=== PATIENT | female | born 1950 | race Caucasian/White ===

== ENCOUNTER → 2016-10-09 | Outpatient (CLI) | payer MEDICARE, OTHER ==
--- NOTE | 2016-10-09 14:43 | MM ---
Reason for exam: history of breast cancer, conservation therapy. Last mammogram was performed 1 year ago. History: Patient is postmenopausal, has history of breast cancer at age 49, and history of other cancer. Silicone gel implants in both breasts, 2007. Lumpectomy of the left breast, 1999. Excisional biopsy of the right breast, 1987. Excisional biopsy of the left breast. Radiation therapy of the left breast. Took estrogen for 5 years beginning at age 45. Physical Findings: Nurse did not find any significant physical abnormalities on exam. MG 3D Diag Mammo Imp W/Cad YANI Bilateral CC, MLO, and ID view(s) were taken. Prior study comparison: October 07, 2015, bilateral MG 3d diag mammo imp w/cad YANI. October 03, 2014, bilateral MG diagnostic mammo w CAD YANI. There are scattered fibroglandular densities. There is chronic nodularity in the right breast. No significant new findings when compared with previous films. These results were verbally communicated with the patient and result sheet given to the patient on 10/09/16. ASSESSMENT: Benign, BI-RAD 2 RECOMMENDATION: Routine screening mammogram of both breasts in 1 year.
== END | disposition home or self-care (01) ==
LOC: RADMAMWWP 13:48
PROVIDERS: ATTEND Internal Medicine Medical Oncology
DX: C50.212 Malignant neoplasm of upper-inner quadrant of left female breast (principal)
CPT/HCPCS: G0204; G0279

== ENCOUNTER → 2017-11-05 | Outpatient (CLI) | payer MEDICARE, OTHER ==
--- NOTE | 2017-11-09 10:22 | MM ---
Reason for exam: screening (asymptomatic). Last mammogram was performed 1 year and 1 month ago. History: Patient is postmenopausal, has history of breast cancer at age 49, and history of other cancer. Silicone gel implants in both breasts, 2007. Lumpectomy of the left breast, 1999. Excisional biopsy of the right breast, 1987. Excisional biopsy of the left breast. Radiation therapy of the left breast. Took estrogen for 5 years beginning at age 45. Physical Findings: A clinical breast exam by your physician is recommended on an annual basis and results should be correlated with mammographic findings. MG 3D Screen Mammo Imp/Cad Bilateral CC, MLO, and ID view(s) were taken. Prior study comparison: October 09, 2016, bilateral MG 3d diag mammo imp w/cad YANI. October 07, 2015, bilateral MG 3d diag mammo imp w/cad YANI. The breast tissue is heterogeneously dense. This may lower the sensitivity of mammography. There are stable right breast masses in the lower inner quadrant and lower outer quadrant back to 2016. No suspicious abnormality. No significant changes when compared with prior studies. ASSESSMENT: Benign, BI-RAD 2 RECOMMENDATION: Routine screening mammogram of both breasts in 1 year.
== END | disposition home or self-care (01) ==
LOC: RADMAMWWP 12:59
PROVIDERS: ATTEND Internal Medicine Medical Oncology
DX: Z12.31 Encounter for screening mammogram for malignant neoplasm of breast (principal); Z85.3 Personal history of malignant neoplasm of breast
CPT/HCPCS: 77063; 77067

== ENCOUNTER → 2018-12-27 | Outpatient (CLI) | payer MEDICARE, OTHER ==
--- NOTE | 2018-12-28 10:39 | MM ---
Reason for exam: screening (asymptomatic). Last mammogram was performed 1 year and 2 months ago. History: Patient is postmenopausal, has history of breast cancer at age 49, and history of other cancer. Silicone gel implants in both breasts, 2007. Lumpectomy of the left breast, 1999. Excisional biopsy of the right breast, 1987. Excisional biopsy of the left breast. Radiation therapy of the left breast. Took estrogen for 5 years beginning at age 45. Physical Findings: A clinical breast exam by your physician is recommended on an annual basis and results should be correlated with mammographic findings. MG 3D Screen Mammo Imp/Cad Bilateral CC, MLO, and ID view(s) were taken. Prior study comparison: November 05, 2017, bilateral MG 3d screen mammo imp/cad. October 09, 2016, bilateral MG 3d diag mammo imp w/cad YANI. No significant new finding when compared with prior studies. ASSESSMENT: Negative, BI-RAD 1 RECOMMENDATION: Routine screening mammogram of both breasts in 1 year.
== END | disposition home or self-care (01) ==
LOC: RADMAMWWP 13:03
PROVIDERS: ATTEND Internal Medicine Medical Oncology
DX: Z12.31 Encounter for screening mammogram for malignant neoplasm of breast (principal); Z85.3 Personal history of malignant neoplasm of breast
CPT/HCPCS: 77063; 77067

== ENCOUNTER → 2021-04-28 | Outpatient (CLI) | payer MEDICARE, OTHER ==
--- NOTE | 2021-04-29 11:55 | MM ---
Reason for exam: screening (asymptomatic). Last mammogram was performed 1 year and 1 month ago. History: Patient is postmenopausal, has history of breast cancer at age 49, and history of other cancer. Silicone gel implants in both breasts, 2007. Lumpectomy of the left breast, 1999. Excisional biopsy of the right breast, 1987. Excisional biopsy of the left breast. Radiation therapy of the left breast. Took estrogen for 5 years beginning at age 45. Physical Findings: A clinical breast exam by your physician is recommended on an annual basis and results should be correlated with mammographic findings. MG 3D Screen Mammo Imp/Cad Bilateral CC and MLO view(s) were taken. Prior study comparison: April 10, 2020, bilateral MG 3d screen mammo imp/cad. December 27, 2018, bilateral MG 3d screen mammo imp/cad. November 05, 2017, bilateral MG 3d screen mammo imp/cad. There are scattered fibroglandular densities. Asymmetric breast tissue right medially, stable. There is no discrete abnormality. Bilateral subpectoral implants. ASSESSMENT: Benign, BI-RAD 2 RECOMMENDATION: Routine screening mammogram of both breasts in 1 year.
== END | disposition home or self-care (01) ==
LOC: RADMAMWWP 14:49
PROVIDERS: ATTEND Internal Medicine Medical Oncology
DX: Z12.31 Encounter for screening mammogram for malignant neoplasm of breast (principal); Z78.0 Asymptomatic menopausal state; Z85.3 Personal history of malignant neoplasm of breast
CPT/HCPCS: 77063; 77067

== ENCOUNTER → 2022-01-24 | Outpatient (CLI) | payer MEDICARE, OTHER ==
--- NOTE | 2022-01-24 08:37 | MR ---
EXAMINATION TYPE: MR knee LT wo con DATE OF EXAM: 01/24/2022 COMPARISON: Outside left knee x-ray December 03, 2021 HISTORY: Left knee inner pain and locking for 4 months.. TECHNIQUE: Multiplanar, multisequence imaging of the left knee is performed without IV contrast. FINDINGS: MEDIAL MENISCUS: Slight increased signal posterior horn does not extend to articular surface. LATERAL MENISCUS: Anterior and posterior horns are intact. There is adjacent thin-walled cyst posteri or to the posterior horn however identified. CRUCIATE LIGAMENTS: The anterior and posterior cruciate ligaments are intact and unremarkable. COLLATERAL LIGAMENTS: The medial collateral ligament and lateral collateral ligament complex are inta ct and unremarkable. EXTENSOR MECHANISM: Visualized quadriceps and patellar tendons are intact. EFFUSION: No significant suprapatellar joint effusion. POPLITEAL CYST: No popliteal/ocampo cyst. TRICOMPARTMENT SPACES: Mild to moderate narrowing and spurring patellofemoral compartment. Mild narro wing and spurring medial tibial femoral compartment CARTILAGE: Chondromalacia patella with thinning of articular cartilage along the posterior patellar p ole. Full-thickness loss is seen superiorly. BONE MARROW SIGNAL: Tiny ovoid lesion of T2 hyperintensity superior posterior patellar pole. OTHER: No additional significant abnormality is appreciated. IMPRESSION: 1. There is parameniscal cyst posterior horn lateral meniscus raising concern for nonvisualized tear. 2. Some intrasubstance tearing posterior horn medial meniscus, no full-thickness tear. 3. Mild to moderate tricompartment degenerative changes greatest patellofemoral compartment as detail ed above.
== END | disposition home or self-care (01) ==
LOC: RADMRIMAIN 07:37
PROVIDERS: ATTEND Orthopaedic Surgery
DX: M17.12 Unilateral primary osteoarthritis, left knee (principal); M23.322 Other meniscus derangements, posterior horn of medial meniscus, left knee

== ENCOUNTER → 2022-04-29 | Outpatient (CLI) | payer MEDICARE, OTHER ==
--- NOTE | 2022-04-30 11:11 | MM ---
Reason for Exam: Screening (asymptomatic). Last screening mammogram was performed 12 month(s) ago. Patient History: Menarche at age 11. First Full-Term at age 25. Right ovary removed at age 41. Hysterectomy at age 41. Postmenopausal. Breast cancer, left, age 49. Estrogen for 5 years from age 45 until age 50. 1999, Lumpectomy on the Left side. 1987, Excisional Biopsy on the Right side. Excisional Biopsy on the Left side. Radiation Therapy, left. 2007, Bilateral Implants. Prior Study Comparison: 12/27/2018 Bilateral Screening Mammogram, [facility]. 04/10/2020 Bilateral Screening Mammogram, [facility]. 04/28/2021 Bilateral Screening Mammogram, [facility]. Tissue Density: There are scattered fibroglandular densities. Findings: Analyzed By CAD. There is no suspicious group of microcalcifications or new suspicious mass in either breast. Bilateral subpectoral implants. Asymmetric breast tissue right medially, stable. No significant change from prior exams. Overall Assessment: Benign, BI-RAD 2 Management: Screening Mammogram of both breasts in 1 year. A clinical breast exam by your physician is recommended on an annual basis and results should be correlated with mammographic findings. Electronically signed and approved by: Mike Hein D.O.
== END | disposition home or self-care (01) ==
LOC: RADMAMWWP 13:45
PROVIDERS: ATTEND Internal Medicine Medical Oncology
DX: Z12.31 Encounter for screening mammogram for malignant neoplasm of breast (principal); Z85.3 Personal history of malignant neoplasm of breast; Z78.0 Asymptomatic menopausal state; Z90.721 Acquired absence of ovaries, unilateral
CPT/HCPCS: 77063; 77067

== ENCOUNTER 2023-03-26 09:09 | Day surgery (SDC) | payer MEDICARE, OTHER ==
[~2023-03-26 09:09] MED LIST: LACTATED RINGERS 1,000 ML IV SCH
[2023-03-26 09:47] VITALS: TEMP 97.6
[2023-03-26] MEDS ORDERED: LIDOCAINE 1% (10MG/ML) FOR IV START INTRADERMA ONE (09:47)
[2023-03-26] MEDS ORDERED: PROPOFOL 10 MG/ML 20 ML VIAL IV ONE (10:10)
--- NOTE | 2023-03-26 10:35 | P.PCN ---
Date of Procedure: 03/26/23 Procedure(s) Performed: BRIEF HISTORY: Patient is a 72-year-old pleasant white female scheduled for an elective colonoscopy as a part of evaluation of prior history of colon polyps. Her last colonoscopy was 3 years ago. Her last colonoscopy was 3 years ago. PROCEDURE PERFORMED: Colonoscopy with snare polypectomy PREOPERATIVE DIAGNOSIS: History of colon polyps. IV sedation per Anesthesia. PROCEDURE: After informed consent was obtained, the patient, was brought into the endoscopy unit. IV sedation was administered by Anesthesia under continuous monitoring. Digital rectal examination was normal. Initially the Olympus CF-160 flexible video pediatric colonoscope was then inserted in the rectum, gradually advanced into the cecum without any difficulty. Careful examination was performed as the scope was gradually being withdrawn. Ileocecal valve and the appendiceal orifice were visualized and appeared normal. Prep was excellent. Mucosa of the cecum, ascending colon, appeared normal. In the transverse colon there was a 5-6 mm flat transverse colon polyp removed by snare polypectomy. Rest of the transverse colon, descending colon, sigmoid colon, and rectum appeared normal. Scattered sigmoid diverticulosis. Retroflexion was performed in the rectum and no lesions were seen. The patient tolerated the procedure well. IMPRESSION: 5-6 mm flat transverse colon polyp status post cold snare polypectomy Scattered sigmoid diverticulosis RECOMMENDATIONS: Findings of this examination were discussed with the patient as well as a family. She appeared normal. The transverse colon there was a 5-6 mm flat polyp that was removed by was advised to follow with the biopsy results. If the biopsies reveal adenoma she can have a repeat colonoscopy in 5 years..
[2023-03-26 10:42] VITALS: PULSE 70; RESP 15
[2023-03-26 11:05] VITALS: BP 140/62
== END 2023-03-26 11:25 | disposition home or self-care (01) ==
LOC: ORWHC2ENDO 09:09
PROVIDERS: ATTEND Internal Medicine Gastroenterology
DX: K57.30 Diverticulosis of large intestine without perforation or abscess without bleeding (principal); Z86.010 Personal history of colon polyps; Z85.3 Personal history of malignant neoplasm of breast; Z98.890 Other specified postprocedural states
CPT/HCPCS: 88305; 45385; J2704

== ENCOUNTER → 2024-06-20 | Outpatient (CLI) | payer MEDICARE, OTHER ==
--- NOTE | 2024-06-21 10:15 | MM ---
Reason for Exam: Screening (asymptomatic). Last mammogram was performed 1 year(s) and 2 month(s) ago. Patient History: Menarche at age 11. First Full-Term at age 25. Right ovary removed at age 41. Hysterectomy at age 41. Postmenopausal. Breast cancer, left, age 49. Estrogen for 5 years from age 45 until age 50. 1999, Lumpectomy on the Left side. 1987, Excisional Biopsy on the Right side. Excisional Biopsy on the Left side. Radiation Therapy, left. 2007, Bilateral Implants. Prior Study Comparison: 04/28/2021 Bilateral Screening Mammogram, [facility]. 04/29/2022 Bilateral MG 3D screen mammo imp/cad., [facility]. 04/30/2023 Bilateral MG 3D screen mammo imp/cad., [facility]. Tissue Density: There are scattered areas of fibroglandular density. Findings: Analyzed By CAD. Bilateral breast implants appear intact. Right breast: Enlarging right breast axillary mass measuring 8 mm approximately 6.1 cm from the nipple. This is possibly medial on CC view. Left breast: There is no suspicious group of microcalcifications or new suspicious mass. Overall Assessment: Incomplete: need additional imaging evaluation, BI-RAD 0 Management: Diagnostic Breast Ultrasound of the right breast. [facility] will attempt to contact patient to return for supplemental views and ultrasound if indicated. Patient should continue monthly self-breast exams. A clinical breast exam by your physician is recommended on an annual basis. This exam should not preclude additional follow-up of suspicious palpable abnormalities. Note on Komal scores and lifetime risk: 1. A Komal score greater than 3% is considered moderate risk. If this is the case, consider specialist referral to assess eligibility for a risk reducing agent. 2. If overall lifetime risk for the development of breast cancer is 20% or higher, the patient may qualify for future screening with alternating mammogram and breast MRI. [facility], , 06/21/2024 10:12 AM. Electronically signed and approved by: Ferdinand Fernandes DO
== END | disposition home or self-care (01) ==
LOC: RADMAMWWP 13:02
PROVIDERS: ATTEND Family Medicine
DX: Z12.31 Encounter for screening mammogram for malignant neoplasm of breast (principal); R92.323 Mammographic fibroglandular density, bilateral breasts; Z78.0 Asymptomatic menopausal state; Z90.722 Acquired absence of ovaries, bilateral
CPT/HCPCS: 77063; 77067

== ENCOUNTER → 2024-06-27 | Outpatient (CLI) | payer MEDICARE, OTHER ==
--- NOTE | 2024-06-27 14:43 | USB ---
Reason for Exam: Additional evaluation requested from abnormal screening. Patient History: Menarche at age 11. First Full-Term at age 25. Right ovary removed at age 41. Hysterectomy at age 41. Postmenopausal. Breast cancer, left, age 49. Estrogen for 5 years from age 45 until age 50. 1999, Lumpectomy on the Left side. 1987, Excisional Biopsy on the Right side. Excisional Biopsy on the Left side. Radiation Therapy, left. 2007, Bilateral Implants. Prior Study Comparison: 04/28/2021 Bilateral Screening Mammogram, [facility]. 04/29/2022 Bilateral MG 3D screen mammo imp/cad., [facility]. 04/30/2023 Bilateral MG 3D screen mammo imp/cad., [facility]. 06/20/2024 Bilateral MG 3D screen mammo imp/cad., [facility]. Findings: The upper outer quadrant of the right breast, the axilla of the right breast and the retroareolar of the right breast were scanned. There is a hypoechoic area above the pectoralis muscle and prosthesis 12:00 position 8 cm from the nipple measuring 0.7 x 0.4 x 0.5 cm. This may correlate with the density on the mediolateral oblique view. Ultrasound-guided core biopsy ovary is recommended. There is a lymph node which is at the upper limits of normal for size and the right axillary tail. Overall Assessment: Suspicious, BI-RAD 4 Management: Ultrasound Core Biopsy of the right breast. A clinical breast exam by your physician is recommended on an annual basis and results should be correlated with mammographic findings. This exam should not preclude additional follow-up of suspicious palpable abnormalities. Results were given to the patient verbally at the time of exam. [facility], , 06/27/2024 1:57 PM. Electronically signed and approved by: Ben Del Cid D.O. Radiologis
== END | disposition home or self-care (01) ==
LOC: RADUSWWP 13:17
PROVIDERS: ATTEND Family Medicine
DX: C50.912 Malignant neoplasm of unspecified site of left female breast (principal); R92.8 Other abnormal and inconclusive findings on diagnostic imaging of breast; Z78.0 Asymptomatic menopausal state; Z90.722 Acquired absence of ovaries, bilateral

== ENCOUNTER → 2024-07-04 | Day surgery (SDC) | payer MEDICARE, OTHER ==
--- NOTE | 2024-07-14 09:28 | MM ---
Reason for Exam: Post Procedure Mammogram. Last screening mammogram was performed less than 1 month ago. Patient History: Menarche at age 11. First Full-Term at age 25. Right ovary removed at age 41. Hysterectomy at age 41. Postmenopausal. Breast cancer, left, age 49. Estrogen, from age 45 until age 48. 1999, Lumpectomy on the Left side. 1987, Excisional Biopsy on the Right side. Excisional Biopsy on the Left side. Radiation Therapy, left. 2007, Bilateral Implants. Prior Study Comparison: 04/29/2022 Bilateral MG 3D screen mammo imp/cad., [facility]. 04/30/2023 Bilateral MG 3D screen mammo imp/cad., [facility]. 06/20/2024 Bilateral MG 3D screen mammo imp/cad., [facility]. Tissue Density: Right: There are scattered areas of fibroglandular density. Pathology Description: Location: 12 o'clock. Marker Left Behind. Needle Type: Celero Cores: 3 Gauge: 12 The procedure of ultrasound guided core biopsy was explained to the patient. Benefits, alternatives, and risks were discussed. An informed consent was then obtained. The patient was placed in supine positioning for imaging and for the procedure. The overlying skin was prepped and draped in usual sterile fashion. Lidocaine buffered with bicarbonate was used as anesthetic into the skin and subcutaneous tissue up to area of concern in the right 12:00 breast. A mason was made with surgical scalpel. Under ultrasound guidance, a 12-gauge vacuum assisted biopsy gun device was used to obtain 3 core samples. Following this, a biopsy clip was left in lesion. The patient tolerated the procedure well without any immediate complication. The patient was kept in the radiology department for short stay after the procedure and then discharged home in stable condition. Postprocedure mammogram: The patient was transferred to mammography for physician ordered post procedure mammogram for clip placement verification. Post procedure mammogram demonstrates the clip in appropriate placement. Impression: Successful, uncomplicated ultrasound guided core biopsy of area of concern in the right 12:00 breast, full pathology results to follow. [facility], , 07/04/2024 2:31 PM. Pathology Results: Result: Malignant, Invasive ductal carcinoma. Pathology and radiology were reviewed. Findings are concordant. RIGHT BREAST, TWELVE O'CLOCK, 8 CMFN, ULTRASOUND GUIDED NEEDLE CORE BIOPSY: Invasive ductal carcinoma, preliminarily Grade 2. See Surgical Pathology Cancer Case Summary and Comment. Overall Assessment: Malignant Assessment: MG diagnostic mammo RT wo CAD - Right: Known biopsy proven malignancy, BI-RAD 6. Management: Surgical Consultation of the right breast. Electronically signed and approved by: Juan Daniel Epstein M.D. Radiologis
== END ==
LOC: RADUSWWP 12:37
PROVIDERS: ATTEND Family Medicine
DX: D05.11 Intraductal carcinoma in situ of right breast (principal); R92.8 Other abnormal and inconclusive findings on diagnostic imaging of breast; Z17.0 Estrogen receptor positive status [ER+]; Z78.0 Asymptomatic menopausal state; Z90.721 Acquired absence of ovaries, unilateral
CPT/HCPCS: 88305; 88342; 88341; 77065; 19083; A4648

== ENCOUNTER → 2024-07-17 | Outpatient (CLI) | payer MEDICARE, OTHER ==
[2024-07-17 11:01] VITALS: BP 109/71; PULSE 71; RESP 17; TEMP 98.7
--- NOTE | 2024-07-17 11:47 | P.GSCN ---
History of Present Illness Consult date: 07/17/24 Reason for Consult: Biopsy-proven right breast invasive ductal carcinoma Requesting physician: Alysha Fox History of present illness: Johanna is a 73-year-old female seen in consultation for Dr. Fox. She und erwent a bilateral screening mammogram on 06-20-2024. This revealed an enlarging right breast axillary mass measuring 8 mm approximately 6.1 cm from the nipple. The patient then underwent a right breast ultrasound which revealed a hypoechoic area above the pectoralis muscle in the 12 o'clock position 8 cm from the nipple measuring 0.7 x 0.5 cm. This also revealed a lymph node at the upper limits of normal in the right axillary tail. An ultrasound core biopsy of the right breast was recommended. No lesions of concern had been seen in the left breast. The patient had a ultrasound-guided core biopsy of the right breast lesion on 07-04-2024. This revealed a invasive ductal carcinoma grade 2 ER/ND positive and HER2 pending. Of significance is the fact that the patient has bilateral breast implants 2007. She has undergone a left breast lumpectomy in 1999 for an invasive ductal carcinoma, and radiation therapyshe had no chemotherapy or hormone therapy. She started tamoxifen and stopped it. 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 She had no radiation or hormone therapy. She took estrogen from age 45 until age 48 prior to the diagnosis of DCIS. She did not feel anything in her breast prior to the mammogram. She felt like her right breast was sagging in 2022 and told possible mastopexy and new implant and told it would be 11,000$ and she chose not to have it done. 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; and a SCC left cheek caffiene: 1 1/2 cups/day nicotine: stopped 49 years ago chocolate: occasional Family History: Mat aunts with blood cancer mother had 11 siblings Hormonal History: menarche: 11 , breast fed: yes, age at first : 26 menopause: hysterectomy for fibroid, took one ovary in her 40's; had second ovary removed later for a cyst estrogen form [age] Surgical History: hysterectomy and bilateral oophrectomy tonsillectomy melanoma left cheek bilateral breast cancer bilateral breast implants Medical History: arthritis neuropathy feet and legs back thin discs Social HIstory: nicotine: stopped 49 years ago alcohol: occasional drugs: none Review of Systems - Constitutional Denies fever, Denies weight loss - EENT Eyes: denies blurred vision Ears: deny: decreased hearing, tinnitus - Breasts bilateral: as per HPI - Cardiovascular Denies chest pain, Denies shortness of breath - Respiratory Denies cough, Denies 7 - Gastrointestinal Gastrointestinal Comment(s): diverticulosis Reports as per HPI, Reports constipation - Genitourinary Genitourinary: Denies dysuria, Denies hematuria Menstruation: Reports as per HPI - Musculoskeletal Reports as per HPI - Integumentary Reports as per HPI - Neurological Reports as per HPI, Denies headaches, Denies syncope - Psychiatric Reports as per HPI - Endocrine Reports as per HPI, Reports fatigue - Hematologic/Lymphatic Denies easy bleeding, Denies easy bruising - Allergic/Immunologic Allergic/Immunologic Comment(s): takes a generic antihistamine Reports as per HPI, Reports seasonal allergies Past Medical History Past Medical History: Cancer Additional Past Medical History / Comment(s): Colonoscopy previous with polypectomy and diverticular disease, allergies, hypotensive at times, skin cancer on face, past skin cancer removed long ago, R breast insitu cancer with lumpectomy and partial mastectomy L breast History of Any Multi-Drug Resistant Organisms: None Reported Past Surgical History: Appendectomy, Breast Surgery, Orthopedic Surgery, Tonsillectomy Additional Past Surgical History / Comment(s): Colonoscopies, R breast lumpectomy and L breast lumpectomy, chalectomy L great toe Past Anesthesia/Blood Transfusion Reactions: Postoperative Nausea & Vomiting (PONV) Past Psychological History: Anxiety Smoking Status: Former smoker Past Alcohol Use History: None Reported Additional Past Alcohol Use History / Comment(s): Pt quit smoking in 1975 Past Drug Use History: None Reported - Past Family History Father History Unknown: Yes Additional Family Medical History / Comment(s): 90 years old, constipation Mother Additional Family Medical History / Comment(s): 90 years old. Medications and Allergies Home Medications Medication Instructions Recorded Confirmed Type Acetaminophen Tab [Tylenol] 325 g PO Q4-6H PRN 03/25/23 06/29/24 History Diclofenac Sodium [Aspercreme 1 applic TOPICAL DAILY PRN 03/25/23 06/29/24 History Arthritis Pain] Loratadine [Children's Claritin 5 mg PO QAM 03/25/23 06/29/24 History Chew Tab] ALPRAZolam [Xanax] 0.25 mg PO BID PRN 06/29/24 06/29/24 History traMADol HCL 25 mg PO Q6H 06/29/24 06/29/24 History Allergies Allergy/AdvReac Type Severity Reaction Status Date / Time No Known Allergies Allergy Verified 06/29/24 13:32 Surgical - Exam - General moderate distress - Eyes normal ocular movement - Neck trachea midline - Respiratory normal respiratory effort, clear to auscultation - Cardiovascular Heart Sounds: normal: S1, S2 - Abdomen Abdomen: soft, non tender, no guarding, no rigid, no rebound - Integumentary normal turgor - Neurologic no disoriented, no combative - Musculoskeletal normal gait - Psychiatric oriented to time, oriented to person, oriented to place, speech is normal, bijal ry intact Breast Exam: BRA: sports bra small to medium inspection: Asymmetry of the breast related to prior surgery Palpation: Right breast: Multi positional exam no dominant masses or nodules of concern, biopsy site clean and dry, the patient has a right breast implant which is high on the chest wall She has grade 3 ptosis Right axilla: No adenopathy of concern Left breast: Postsurgical changes, implant in place, no dominant masses or nodules of concern Left axilla: No adenopathy of concern Results Graft reviewed with radiology Dr. Del Cid, he does not believe there is any axillary adenopathy which would warrant interventional biopsy Assessment and Plan Assessment: Impression: Right breast invasive ductal carcinoma ER+Pr+Her2?, [id number] Plan: Presentation of case at tumor board Probable right breast needle localization lumpectomy, removal of implant, mastopexy, sentinel node biopsy CC: Dr. Fox
== END ==
LOC: WWCWWP 10:13
PROVIDERS: ATTEND Surgery
DX: C50.911 Malignant neoplasm of unspecified site of right female breast (principal); Z17.0 Estrogen receptor positive status [ER+]; Z87.891 Personal history of nicotine dependence

== ENCOUNTER → 2024-07-27 | Outpatient (CLI) | payer MEDICARE, OTHER ==
--- NOTE | 2024-07-28 10:55 | MM ---
Reason for Exam: Follow-up at short interval from prior study. Last screening mammogram was performed 1 month(s) ago. Patient History: Menarche at age 11. First Full-Term at age 25. Right ovary removed at age 41. Hysterectomy at age 41. Postmenopausal. Breast cancer, left, age 49. Breast cancer, right, age 73. Estrogen, from age 45 until age 48. 07/04/2024, Malignant US biopsy breast VAD RT on the right side. 1999, Lumpectomy on the Left side. 1987, Excisional Biopsy on the Right side. Excisional Biopsy on the Left side. Radiation Therapy, left. 2007, Bilateral Implants. Prior Study Comparison: 04/30/2023 Bilateral MG 3D screen mammo imp/cad., [facility]. 06/20/2024 Bilateral MG 3D screen mammo imp/cad., [facility]. 07/04/2024 Right MG diagnostic mammo RT wo CAD, [facility]. Tissue Density: Right: There are scattered areas of fibroglandular density. Findings: Analyzed By CAD. Bilateral breast implants appear intact. Area of concern/asymmetry compresses out on spot compression imaging. No suspicious masses, calcifications or distortions. Overall Assessment: Known biopsy proven malignancy, BI-RAD 6 Management: Surgical Consultation of the right breast. Area of concern in the breast is not visualized additional views. Surgical consultation remains for biopsy-proven malignancy. Results were given to the patient verbally at the time of exam. Patient should continue monthly self-breast exams. A clinical breast exam by your physician is recommended on an annual basis. This exam should not preclude additional follow-up of suspicious palpable abnormalities. Note on Komal scores and lifetime risk: 1. A Komal score greater than 3% is considered moderate risk. If this is the case, consider specialist referral to assess eligibility for a risk reducing agent. 2. If overall lifetime risk for the development of breast cancer is 20% or higher, the patient may qualify for future screening with alternating mammogram and breast MRI. [facility], , 07/27/2024 3:29 PM. Electronically signed and approved by: Ferdinand Fernandes DO
== END | disposition home or self-care (01) ==
LOC: RADMAMWWP 14:07
PROVIDERS: ATTEND Surgery
DX: C50.911 Malignant neoplasm of unspecified site of right female breast (principal); R92.8 Other abnormal and inconclusive findings on diagnostic imaging of breast; Z90.721 Acquired absence of ovaries, unilateral; Z78.0 Asymptomatic menopausal state; Z85.3 Personal history of malignant neoplasm of breast; R92.321 Mammographic fibroglandular density, right breast; Z98.82 Breast implant status
CPT/HCPCS: 77065; G0279; 77061

== ENCOUNTER → 2024-09-25 | Outpatient (CLI) | payer MEDICARE, OTHER ==
--- NOTE | 2024-09-27 10:31 | BMR ---
EXAM DATE: 09/25/2024 EXAM DESCRIPTION: MRI-Breast Bilat (W/WO Contrast) INDICATION: Checking for breast implant leakage, history of lumpectomy right breast, partial mastectomy left breast, right breast implant removed. COMPARISON: Comparison is made with relevant prior imaging in PACS. CONTRAST: 6 cc of Gadobutrol TECHNIQUE: Multiplanar MRI imaging of both breasts was performed with a dedicated breast coil, before and after intravenous administration of gadolinium contrast, using the standard breast mass protocol. Computer-aided detection was used to aid in interpretation. Study was performed at [facility] with Radiologic interpretation by [facility]. FINDINGS: General breast composition: There are scattered areas of fibroglandular tissue Background parenchymal enhancement: Mild FINDINGS: Right Breast: Review of the dynamic contrast-enhanced series shows postsurgical changes status post lumpectomy with interval removal right breast implant. A large seroma/hematoma is present measuring with interval removal 3.5 x 4.7 cm. There is enhancement involving the pectoralis muscle, which is likely postsurgical in etiology. No rapidly enhancing masses, suspicious enhancement patterns or other abnormalities. Left Breast: Review of the dynamic contrast-enhanced series shows no rapidly enhancing masses, suspicious enhancement patterns or other abnormalities. There is an intact subglandular silicone implant. The T2 weighted series shows no abnormality. IMPRESSION: Right Breast: BI-RADS Category2- Benign 1. Postsurgical changes status post lumpectomy in right breast implant removal. A large 5 cm seroma/hematoma is present. No MRI evidence of malignancy. 2. Enhancement involving the pectoralis muscle which is likely postsurgical in etiology Recommendation: Routine screening on schedule. Left Breast: BI-RADS Category 2- Benign No MRI evidence of malignancy. Intact subglandular silicone implant. Recommendation: Routine screening on schedule. OVERALL ASSESSMENT -- BI-RADS 2 MTDD
== END | disposition home or self-care (01) ==
LOC: RADMRIMAIN 18:36
PROVIDERS: ATTEND Surgery
DX: T85.43XA Leakage of breast prosthesis and implant, initial encounter (principal)
CPT/HCPCS: C8908; A9585; 77049

== ENCOUNTER → 2024-10-19 | Outpatient (CLI) | payer MEDICARE, OTHER ==
[2024-10-19 15:43] VITALS: BP 122/59; PULSE 78; RESP 17; TEMP 98.3
--- NOTE | 2024-10-19 16:21 | P.BCPO ---
Progress Note - Text Progress Note Date: 10/19/24 Progress Note - Text Progress Note Date: 09/06/24 Johanna is a 73 year old status post right breast lumpecotmy and SNB on 08-29-24. She had an implant removed and capsulectomy at the same time. Her pathology showed 0.7 cm invasive cancer all margins (-) and DCIs .7cm all margins (-) but close posterior and anterior. She had a clip which was not seen in the specimen. Drain less than 10 cc/day. Patient's case presented at tumor board and 09-26-2024. 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 The case was presented by Dr. Joy as to whether the patient would be best served with radiation to the breast, a nipple sparing mastectomy, and reconstruction or to be followed conservatively with an aromatase inhibitor. The consensus was that it would be best to treat the residual breast parenchyma but the patient does desire some type of augmentation and/or reconstruction on that side. It was thought that a mastectomy with reconstruction could avoid radiation and may be in her best interest. I have called the patient to discuss this with her. She has seen Dr. Rod on and an MRI of the breast was done 2 days ago. MRI of the breast on 09-25-[address] Rodrigues reviewed: 10-12-24: patient hesitant to start hormone therapy; oncotype 16 did not recommend chemotherapy Patient is considering that she would like to have radiation of the breast and then reconstruction down the road. examination: lungs clear heart: RRR incision: clean and dry breast and axilla Impression/Plan: appointment with Dr. Andrews regarding left breast and possible bilateral simple mastectomy and reconstruction repeat mammogram in 6 months of the right breast, March 2025 2nd appointment appointment with medical and radiation oncology done Another appointment with radiation oncology follow up here in 4 months
== END ==
LOC: WWCWWP 15:07
PROVIDERS: ATTEND Surgery
DX: D05.10 Intraductal carcinoma in situ of unspecified breast (principal); Z90.13 Acquired absence of bilateral breasts and nipples; Z98.890 Other specified postprocedural states